=== PATIENT | male | born 1985 | race Caucasian/White ===

== ENCOUNTER 2020-07-14 05:51 | Day surgery (SDC) | payer BC ==
--- NOTE | 2020-07-12 12:48 | HP ---
HISTORY OF PRESENT ILLNESS: Geraldo Bradley is a 35-year-old male patient, jesusita henning, has had a right inguinal hernia that is bothersome to him. It is enlarging. Plan is to repair this with robot, mesh. Physical exam did not reveal a left inguinal hernia and the patient denies any symptoms on the left. We would plan repair on the left if appreciated robotically/laparoscopically. The patient understands risks and benefits and consents. The patient, in the past, had an accident resulting in chronic left shoulder and knee pain and has an evaluation with Dr. Garay for that soon. This pain bothers him at night. Surgery had been recommended in the past, but at the [place] and deferred to a later time. ALLERGIES: NONE. SOCIAL HISTORY: Tobacco, none. Alcohol, rarely. MEDICATIONS: None routinely. PAST SURGICAL AND MEDICAL HISTORY: Noncontributory except as noted above. FAMILY HISTORY: Noncontributory. REVIEW OF SYSTEMS: Noncontributory. PHYSICAL EXAMINATION: VITAL SIGNS: 152 pounds, 6 feet 1 inch, 136/69, 71, 98.2 degrees. HEAD, EARS, EYES, NOSE, AND THROAT: Unremarkable. LUNGS: Clear to auscultation. CARDIAC: Regular rate and rhythm without murmur or gallop. ABDOMEN: Soft and nontender. EXTREMITIES: Unremarkable. : Testicles normal. Left groin without hernia. Right groin, inguinal hernia on standing Valsalva. ASSESSMENT AND PLAN: Right inguinal hernia. We would recommend robot/laparoscopic mesh repair outpatient and repair of left if appreciated endoscopically, although less likely. He understands risks of infection, bleeding, reoperation, recurrence of the hernia, firm cord structures, etc., and consents. Questions answered. Job ID: [id number]
[2020-07-12 13:39] VITALS: BMI 21.7
[2020-07-14] MEDS ORDERED: Acetaminophen 500 MG TAB ONE (06:07)
[2020-07-14] MEDS ORDERED: Gabapentin 300 MG CAP ONE (06:07)
[2020-07-14] MEDS ORDERED: Ketorolac Tromethamine 30 MG/ML VIAL ONE (06:08)
[2020-07-14] MEDS ORDERED: Bupivacaine/Epinephrine 0.25% 30 ML VIAL ONE (06:26)
[2020-07-14] MEDS ORDERED: Fentanyl 250 MCG/5 ML VIAL ONE (06:47)
[2020-07-14] MEDS ORDERED: Midazolam HCl 2 mg/2 ml Vial ONE (07:14)
[2020-07-14] MEDS ORDERED: Famotidine/PF 20 mg/2ml Vial ONE (07:14)
[2020-07-14] MEDS ORDERED: PROPOFOL 200 MG/20 ML VIAL ONE (09:34)
[2020-07-14] MEDS ORDERED: diphenhydrAMINE 50 MG/ML VIAL ONE (09:34)
[2020-07-14] MEDS ORDERED: Dexamethasone 20 MG/5 ML VIAL ONE (09:34)
[2020-07-14] MEDS ORDERED: Glycopyrrolate 0.2 MG/ML 5 ML SYRINGE ONE (09:34)
[2020-07-14] MEDS ORDERED: Ondansetron PF 4 MG/2 ML Vial ONE (09:34)
[2020-07-14] MEDS ORDERED: Rocuronium Bromide 10 MG/ML (10ML VIAL) ONE (09:34)
[2020-07-14] MEDS ORDERED: Fentanyl 100 MCG/2 ML VIAL ONE ×3 (10:33→11:45)
--- NOTE | 2020-07-14 10:35 | OP ---
DATE OF PROCEDURE: 07/14/2020 PREOPERATIVE DIAGNOSIS: Right inguinal hernia. POSTOPERATIVE DIAGNOSIS: Bilateral inguinal hernias. PROCEDURE PERFORMED: Robot laparoscopic large Bard 3DMax mesh repair of bilateral inguinal hernias. ANESTHESIA: General, local with 0.5% Marcaine with epinephrine 30 mL. DESCRIPTION OF PROCEDURE: The patient was taken to the operating room where under general anesthesia, Mallory catheter was placed at the beginning of the procedure and removed at the end. Abdomen was clipped of hair, prepared with ChloraPrep, and draped in routine fashion. The patient was placed in slight Trendelenburg and local anesthetic was infiltrated in the skin and subcutaneous tissue at all operative sites. A supraumbilical left of midline incision made and pneumoperitoneum to 15 mmHg obtained with a Veress needle, replaced with an 11-mm balloon port. Bilateral far lateral incision was made and an 8-mm port was placed under laparoscopic visualization. Robot was docked, properly positioned, and robot inguinal hernia repair undertaken. An inguinal hernia defect noted on the, right appreciated clinically preoperatively, and a smaller hernia located on the left. Bilateral inguinal hernia repair undertaken. Peritoneal flap was dissected free from the anterior superior iliac spine medially on both sides. Flaps dissected free to the Gama ligament medially and laterally. Retroperitoneal space dissected free, preserving the inferior epigastric vessels on both sides, and dissecting the hernia sac free from the cord structures for at least an 8 cm in length. A Bard 3DMax large mesh secured, properly oriented on both sides, secured to Gama ligament with interrupted sutures of 2-0 Vicryl and mesh secured just lateral to the inferior epigastric vessels on both sides with 2-0 Vicryl suture. Mesh properly positioned. Good coverage of the cord structures and peritoneal flaps on both sides closed with continuous suture of 3-0 V-Loc suture. It had great coverage and needles returned. Pneumoperitoneum reduced and all fascia approximated with interrupted 0 Vicryl and UR needle. All skin incisions approximated with 4-0 Monocryl and E[place] glue applied. The patient tolerated the procedure well. Job ID: [id number]
[2020-07-14] MEDS ORDERED: HYDROcodone/Acetaminophen 5/325 mg Tablet ONE (11:51)
== END 2020-07-14 12:51 | disposition home or self-care (01) ==
LOC: SDC 05:51
PROVIDERS: ATTEND Specialist
PROC: 0YUA4JZ Supplement Bilateral Inguinal Region with Synthetic Substitute, Percutaneous Endoscopic Approach (ICD-10-PCS; principal; 2020-07-14)
DX: K40.20 Bilateral inguinal hernia, without obstruction or gangrene, not specified as recurrent (principal); Z88.8 Allergy status to other drugs, medicaments and biological substances
CPT/HCPCS: C1781; J0690; J1100; J1200; J1885; J2250; J2405; J2704; J3010; S0028

== ENCOUNTER 2022-02-06 11:58 | Outpatient (CLI) | payer BC ==
[2022-02-06 13:09] LABS: #Basophils 0.1 10x3/uL (0.0-0.2); #Eosinphils 0.2 10x3/uL (0.0-0.5); #Monocytes 0.7 10x3/uL (0.0-1.1); #Neutrophils 3.3 10x3/uL (1.5-8.4); %Basophils 1.1 % (0.0-2.0); %Eosinophils 3.3 % (0.0-6.0); %Lymphocytes 37.5 % (18.0-47.0); %Monocytes 9.9 % (0.0-10.0); %Neutrophils 47.8 % (40.0-75.0); Hemoglobin 11.9 g/dL (13.5-17.5); Mean Corpuscular HGB CONC 33.6 g/dL (32.0-36.0); Mean Corpuscular Hemoglobin 31.6 pg (27.0-33.0); Mean Corpuscular Volume 94.1 fl (81.2-95.1); Mean Platelet Volume 11.4 fl (7.4-10.4); Platelet Count 155 10x3/uL (150-450); RBC Distribution Width 12.2 % (11.5-14.5); Red Blood Cell (RBC) Count 3.76 10x6/uL (4.32-5.72)
[2022-02-06 21:50] LABS: SARS-CoV-2 PCR by NAA Not Detected (NotDetected)
== END 2022-02-06 11:59 | disposition home or self-care (01) ==
LOC: LABBT 11:58
PROVIDERS: ATTEND Surgery
DX: Z01.812 Encounter for preprocedural laboratory examination (principal); K40.91 Unilateral inguinal hernia, without obstruction or gangrene, recurrent; Z20.822 Contact with and (suspected) exposure to COVID-19
CPT/HCPCS: 85025; U0003; U0005

== ENCOUNTER 2022-02-11 06:14 | Day surgery (SDC) | payer OTHER ==
[2022-02-07 10:52] VITALS: BMI 19.8
[2022-02-11] MEDS ORDERED: Lidocaine 1% w/Epinephrine 1:100K 20 ML VIAL ONE (08:24)
[2022-02-11] MEDS ORDERED: Bupivacaine 0.25% 10 ML VIAL ONE (08:24)
[2022-02-11] MEDS ORDERED: ceFAZolin (BATCH) 2 GM/100 ML BAG ONE (08:35)
[2022-02-11] MEDS ORDERED: Lidocaine 1% PF 5 ML VIAL ONE (08:45)
[2022-02-11] MEDS ORDERED: Dexamethasone 20 MG/5 ML VIAL ONE (08:45)
[2022-02-11] MEDS ORDERED: Glycopyrrolate 0.2 MG/ML 5 ML SYRINGE ONE (08:45)
[2022-02-11] MEDS ORDERED: PROPOFOL 200 MG/20 ML VIAL ONE (08:45)
[2022-02-11] MEDS ORDERED: Ondansetron PF 4 MG/2 ML Vial ONE ×2 (08:45→09:50)
[2022-02-11] MEDS ORDERED: Fentanyl 100 MCG/2 ML VIAL ONE (09:37)
[2022-02-11] MEDS ORDERED: HYDROmorphone 0.5 MG/0.5 ML SYRINGE ONE ×2 (09:50→10:08)
[2022-02-11] MEDS ORDERED: HYDROmorphone 2 MG/ML VIAL ONE (10:08)
[2022-02-11] MEDS ORDERED: Morphine 2 MG/ML VIAL ONE (10:53)
[2022-02-11] MEDS ORDERED: HYDROcodone/Acetaminophen 5/325 mg Tablet ONE (11:19)
== END 2022-02-11 12:14 | disposition home or self-care (01) ==
LOC: SDC 06:14
PROVIDERS: ATTEND Surgery
PROC: 0YU50JZ Supplement Right Inguinal Region with Synthetic Substitute, Open Approach (ICD-10-PCS; principal; 2022-02-11)
DX: K40.91 Unilateral inguinal hernia, without obstruction or gangrene, recurrent (principal); Z87.891 Personal history of nicotine dependence; Z79.899 Other long term (current) drug therapy; Z88.8 Allergy status to other drugs, medicaments and biological substances
CPT/HCPCS: C1781; J0690; J1100; J1170; J2270; J2405; J2704; J3010; S0020